=== PATIENT | female | born 1980 | race Caucasian/White ===

== ENCOUNTER 2020-02-19 19:03 | Emergency (ER) | payer MEDICAID ==
[~2020-02-19] VITALS: Ht 160 cm; Wt 75.0 kg
[~2020-02-19 19:03] MED LIST: VICOT PO
[2020-02-19] MEDS ORDERED: DULO20CA27 PO (19:26)
[2020-02-19 21:34] LABS: BASOPHILS % (AUTO) 0.5 % (0.0-2.0); EOSINOPHILS % (AUTO) 0.1 % (1.0-6.0); HEMOGLOBIN 15.2 g/dL (12.0-16.0); LYMPHOCYTES # (AUTO) 2.7 K/uL (1.0-4.8); LYMPHOCYTES % (AUTO) 35.5 % (22.0-44.0); MEAN CORPUSCULAR HEMOGLOBIN 31.1 pg (26.0-34.0); MEAN CORPUSCULAR HGB CONC 33.1 G/dL (31.0-37.0); MEAN CORPUSCULAR VOLUME 94 fL (80-100); MONOCYTES # (AUTO) 0.3 K/uL (0.1-1.0); NEUTROPHILS # (AUTO) 4.5 K/uL (1.8-7.7); NEUTROPHILS % (AUTO) 59.9 % (40.0-70.0); PLATELET COUNT (AUTO) 288 K/uL (150-450); RED BLOOD CELL COUNT(AUTO) 4.89 MIL/uL (4.00-5.20)
[2020-02-19 21:40] LABS: AMPHET/METH SCREEN,URINE POSITIVE (NEGATIVE); BARBITURATE SCREEN, URINE NEGATIVE (NEGATIVE); BENZODIAZEPINES SCREEN,URINE NEGATIVE (NEGATIVE); CANNABINOID SCREEN,URINE NEGATIVE (NEGATIVE); COCAINE SCREEN,URINE NEGATIVE (NEGATIVE); METHADONE SCREEN, URINE NEGATIVE (NEGATIVE); OPIATE SCREEN,URINE NEGATIVE (NEGATIVE)
[2020-02-19 21:44] LABS: PHENCYCLIDINE SCREEN,URINE NEGATIVE (NEGATIVE)
[2020-02-19] MEDS ORDERED: ACETAMINOPHEN/CODEINE 300-30 MG TABLET PO ONE (21:45)
[2020-02-19] MEDS ORDERED: KETOROLAC TROMETHAMINE 60 MG/2 ML VIAL IM ONE (21:45)
[2020-02-19 21:47] LABS: ANION GAP 11 mmol/L (8-16); CALCIUM, TOTAL 8.7 mg/dL (8.8-10.5); CARBON DIOXIDE 25 mmol/L (22-29); CHLORIDE 102 mmol/L (98-107); CREATININE 0.58 mg/dL (0.60-1.30); GLOMERULAR FILTR. RATE CALC > 60 mL/min (>60); GLUCOSE,RANDOM 126 mg/dL (70-110); POTASSIUM 3.8 mmol/L (3.5-5.1); SODIUM SERUM 138 mmol/L (136-145); UREA NITROGEN, BLOOD 6 mg/dL (7-18)
[2020-02-19 21:58] LABS: ALANINE AMINOTRANSFERASE 62 U/L (12-78); ALBUMIN 3.8 g/dL (3.4-5.0); ALKALINE PHOSPHATASE 94 U/L (46-116); ASPARTATE AMINOTRANSFERASE 84 U/L (15-37); BILIRUBIN,TOTAL 0.4 mg/dL (0.1-1.0); HCG,QUANTITATIVE 1 mIU/mL (0-6); TOTAL PROTEIN, SERUM 7.7 g/dL (6.4-8.2)
[2020-02-19 23:00] VITALS: BP 160/103
== END 2020-02-19 23:40 | disposition home or self-care (01) ==
LOC: EMS 19:03
DX: S22.41XA Multiple fractures of ribs, right side, initial encounter for closed fracture (principal); I10 Essential (primary) hypertension; F31.9 Bipolar disorder, unspecified; F17.210 Nicotine dependence, cigarettes, uncomplicated; Y08.89XA Assault by other specified means, initial encounter; Y93.89 Activity, other specified; Y92.89 Other specified places as the place of occurrence of the external cause; Y99.8 Other external cause status
CPT/HCPCS: 36415; 71101; 80053; 80307; 84702; 85025; 96372; 99284; G0480; J1885

== ENCOUNTER 2020-08-05 12:09 | Inpatient (IN) | payer MEDICAID ==
[~2020-08-05] VITALS: Ht 160 cm; Wt 61.2 kg
[~2020-08-05 12:09] MED LIST changes: +DULO20CA27 PO; -VICOT PO
[2020-08-05] MEDS ORDERED: LEVE500T53 PO (12:26)
[2020-08-05] MEDS ORDERED: CLON0.1T2 PO (12:26)
[2020-08-05] MEDS ORDERED: ALBU8HFA IH (12:26)
[2020-08-05 12:50] LABS: BASOPHILS % (AUTO) 0.7 % (0.0-2.0); EOSINOPHILS % (AUTO) 0.3 % (1.0-6.0); HEMATOCRIT 37.1 % (36-46); HEMOGLOBIN 12.4 g/dL (12.0-16.0); LYMPHOCYTES # (AUTO) 2.2 K/uL (1.0-4.8); LYMPHOCYTES % (AUTO) 25.2 % (22.0-44.0); MEAN CORPUSCULAR HEMOGLOBIN 31.9 pg (26.0-34.0); MEAN CORPUSCULAR HGB CONC 33.5 G/dL (31.0-37.0); MEAN CORPUSCULAR VOLUME 95 fL (80-100); MONOCYTES # (AUTO) 0.5 K/uL (0.1-1.0); MONOCYTES % (AUTO) 5.9 % (2.0-9.0); NEUTROPHILS # (AUTO) 5.8 K/uL (1.8-7.7); NEUTROPHILS % (AUTO) 67.9 % (40.0-70.0); PLATELET COUNT (AUTO) 234 K/uL (150-450); RED BLOOD CELL COUNT(AUTO) 3.89 MIL/uL (4.00-5.20); RED CELL DISTRIBUTION WIDTH 14.8 % (11.5-14.5)
[2020-08-05 12:53] LABS: COVID AG,FIA SOURCE NASOPHARYNGEAL
[2020-08-05 13:04] LABS: ANION GAP 14 mmol/L (8-16); CALCIUM, TOTAL 8.3 mg/dL (8.8-10.5); CARBON DIOXIDE 24 mmol/L (22-29); CHLORIDE 102 mmol/L (98-107); CREATININE 0.85 mg/dL (0.60-1.30); GLOMERULAR FILTR. RATE CALC > 60 mL/min (>60); GLUCOSE,RANDOM 108 mg/dL (70-110); POTASSIUM 3.4 mmol/L (3.5-5.1); SODIUM SERUM 140 mmol/L (136-145); UREA NITROGEN, BLOOD 9 mg/dL (7-18)
[2020-08-05 13:08] LABS: ALANINE AMINOTRANSFERASE 27 U/L (12-78); ALBUMIN 3.5 g/dL (3.4-5.0); ALKALINE PHOSPHATASE 57 U/L (46-116); ASPARTATE AMINOTRANSFERASE 35 U/L (15-37); BILIRUBIN,TOTAL 0.2 mg/dL (0.1-1.0); TOTAL PROTEIN, SERUM 7.5 g/dL (6.4-8.2)
[2020-08-05] MEDS ORDERED: ZOLPIDEM TARTRATE 10 MG TABLET PO PRN (13:45)
[2020-08-05 13:55] LABS: AMPHET/METH SCREEN,URINE POSITIVE (NEGATIVE); BARBITURATE SCREEN, URINE NEGATIVE (NEGATIVE); BENZODIAZEPINES SCREEN,URINE NEGATIVE (NEGATIVE); CANNABINOID SCREEN,URINE NEGATIVE (NEGATIVE); COCAINE SCREEN,URINE NEGATIVE (NEGATIVE); METHADONE SCREEN, URINE NEGATIVE (NEGATIVE); OPIATE SCREEN,URINE POSITIVE (NEGATIVE); PHENCYCLIDINE SCREEN,URINE NEGATIVE (NEGATIVE)
[2020-08-05] MEDS: LORazepam 2 MG TABLET PO PRN ×2 (13:57→20:35)
[2020-08-05 14:42] VITALS: BP 167/93
[2020-08-05 17:07] VITALS: BP 135/79
[2020-08-05] MEDS: QUEtiapine FUMARATE 100 MG TABLET PO PRN (23:35)
[2020-08-06 00:32] VITALS: BP 143/96
[2020-08-06] MEDS ORDERED: INFLUENZA VIRUS VACCINE QVS 2020-21 (6MO+)/PF 60 MCG/0.5 ML SYRINGE IM ONE (06:45)
[2020-08-06 08:51] LABS: CHOL/HDL RATIO 1.7 (3.9-5.7); FREE T4 (FREE THYROXINE) 0.79 ng/dL (0.76-1.46); THYROID STIMULATING HORMONE 2.85 uIU/mL (0.36-3.74)
[2020-08-06] MEDS: LORazepam 2 MG TABLET PO PRN ×3 (08:52→19:38)
[2020-08-06] MEDS: NICOTINE 21 MG/24 HOUR PATCH TD SCH (08:53)
[2020-08-06] MEDS ORDERED: ALBUTEROL SULFATE HFA 90 MCG/PUFF 8 GM INHALER IH PRN (09:30)
[2020-08-06] MEDS ORDERED: OMEPRAZOLE 20 MG CAPSULE PO PRN (09:30)
[2020-08-06] MEDS ORDERED: IBUPROFEN 600 MG TABLET PO PRN (09:30)
[2020-08-06] MEDS ORDERED: CloNIDine HCL 0.1 MG TABLET PO PRN (09:30)
[2020-08-06] MEDS ORDERED: MAG HYDROX/AL HYDROX/SIMETH ES 30 ML SUSPENSION UDCUP PO PRN (09:30)
[2020-08-06] MEDS ORDERED: BENZOCAINE/MENTHOL LOZENGE PO PRN (09:30)
[2020-08-06] MEDS ORDERED: BACITRACIN 28 GM OINTMENT TP PRN (09:30)
[2020-08-06] MEDS ORDERED: ACETAMINOPHEN 325 MG TABLET PO PRN (09:30)
[2020-08-06] MEDS ORDERED: POTASSIUM CHLORIDE 20 MEQ ER TABLET PO ONE (09:30)
[2020-08-06] MEDS ORDERED: PETROLATUM,WHITE 28 GM JELLY TP PRN (09:30)
[2020-08-06] MEDS ORDERED: DOCUSATE SODIUM 100 MG CAPSULE PO PRN (09:30)
[2020-08-06] MEDS ORDERED: MAGNESIUM HYDROXIDE SUSPENSION 30 ML UDCUP PO PRN (09:30)
[2020-08-06 09:31] VITALS: BP 132/80
[2020-08-06] MEDS: LevETIRAcetam 500 MG TABLET PO SCH (16:53)
[2020-08-06 17:11] VITALS: BP 141/101
[2020-08-06 20:05] VITALS: BP 142/90
[2020-08-06] MEDS ORDERED: ChlordiazePOXIDE HCL 25 MG CAPSULE PO PRN (20:45)
[2020-08-06] MEDS: QUEtiapine FUMARATE 100 MG TABLET PO PRN (21:29)
[2020-08-07] VITALS (7 sets, daily range): BP systolic 112–156; BP diastolic 67–97
[2020-08-07] MEDS: LORazepam 2 MG TABLET PO PRN ×2 (03:08→14:53)
[2020-08-07] MEDS ORDERED: ChlordiazePOXIDE HCL 25 MG CAPSULE PO PRN (07:00)
[2020-08-07] MEDS: ChlordiazePOXIDE HCL 25 MG CAPSULE PO SCH ×4 (10:16→20:24)
[2020-08-07] MEDS: MULTIVITAMINS WITH MINERALS, THERAPEUTIC TABLET PO SCH (10:16)
[2020-08-07] MEDS: DULoxetine HCL 60 MG CAPSULE PO SCH (10:16)
[2020-08-07] MEDS: LevETIRAcetam 500 MG TABLET PO SCH ×2 (10:17→16:31)
[2020-08-07] MEDS: NICOTINE 21 MG/24 HOUR PATCH TD SCH (10:17)
[2020-08-08] MEDS: QUEtiapine FUMARATE 100 MG TABLET PO PRN (01:59)
[2020-08-08 03:52] VITALS: BP 149/103
[2020-08-08 04:09] VITALS: BP 149/103
[2020-08-08] MEDS: ChlordiazePOXIDE HCL 25 MG CAPSULE PO SCH ×2 (08:55→12:32)
[2020-08-08] MEDS: MULTIVITAMINS WITH MINERALS, THERAPEUTIC TABLET PO SCH (08:55)
[2020-08-08] MEDS: LevETIRAcetam 500 MG TABLET PO SCH (08:55)
[2020-08-08] MEDS: DULoxetine HCL 60 MG CAPSULE PO SCH (08:55)
[2020-08-08] MEDS: NICOTINE 21 MG/24 HOUR PATCH TD SCH (08:58)
[2020-08-08 09:21] VITALS: BP 118/78
[2020-08-08 09:25] VITALS: BP 118/78
[2020-08-08] MEDS: LORazepam 2 MG TABLET PO PRN (12:32)
[2020-08-08] MEDS ORDERED: MULT-1239 PO (14:13)
[2020-08-09] MEDS ORDERED: ChlordiazePOXIDE HCL 10 MG CAPSULE PO PRN (07:00)
[2020-08-09] MEDS ORDERED: ChlordiazePOXIDE HCL 10 MG CAPSULE PO SCH (09:00)
[2020-08-10] MEDS ORDERED: ChlordiazePOXIDE HCL 10 MG CAPSULE PO PRN (07:00)
== END 2020-08-08 15:00 | disposition home or self-care (01) | DRG 750 ==
LOC: EMS 12:14 → 3EI 14:10
PROVIDERS: ADMIT Psychiatry & Neurology Psychiatry; ATTEND Psychiatry & Neurology Psychiatry
DX: F20.9 Schizophrenia, unspecified (principal); F15.90 Other stimulant use, unspecified, uncomplicated; F17.200 Nicotine dependence, unspecified, uncomplicated; K21.9 Gastro-esophageal reflux disease without esophagitis; K59.00 Constipation, unspecified; F41.9 Anxiety disorder, unspecified; G47.00 Insomnia, unspecified; E87.6 Hypokalemia; Z20.822 Contact with and (suspected) exposure to COVID-19; Z88.8 Allergy status to other drugs, medicaments and biological substances
CPT/HCPCS: 84132; 84439; 84443; 87426; 99285; G0480

== ENCOUNTER 2020-09-20 15:50 | Inpatient (IN) | payer MEDICAID, OTHER ==
[~2020-09-20] VITALS: Ht 160 cm; Wt 60.3 kg
[~2020-09-20 15:50] MED LIST changes: +LEVE500T53 PO; +MULT-1239 PO
[2020-09-20] MEDS: LORazepam 2 MG TABLET PO PRN (19:24)
[2020-09-20] MEDS ORDERED: HALOPERIDOL LACTATE 5 MG/ML VIAL IM ONE (19:30)
[2020-09-20] MEDS ORDERED: LORazepam 2 MG/ML VIAL IM ONE (19:30)
[2020-09-20 21:35] LABS: COVID AG,FIA SOURCE NASOPHARYNGEAL
[2020-09-20 22:13] LABS: BASOPHILS % (AUTO) 0.7 % (0.0-2.0); EOSINOPHILS % (AUTO) 0.5 % (1.0-6.0); HEMOGLOBIN 12.6 g/dL (12.0-16.0); LYMPHOCYTES # (AUTO) 1.8 K/uL (1.0-4.8); LYMPHOCYTES % (AUTO) 20.9 % (22.0-44.0); MEAN CORPUSCULAR HEMOGLOBIN 29.7 pg (26.0-34.0); MEAN CORPUSCULAR HGB CONC 32.4 G/dL (31.0-37.0); MEAN CORPUSCULAR VOLUME 92 fL (80-100); MONOCYTES # (AUTO) 0.8 K/uL (0.1-1.0); MONOCYTES % (AUTO) 9.6 % (2.0-9.0); NEUTROPHILS # (AUTO) 5.7 K/uL (1.8-7.7); NEUTROPHILS % (AUTO) 68.3 % (40.0-70.0); RED BLOOD CELL COUNT(AUTO) 4.24 MIL/uL (4.00-5.20); RED CELL DISTRIBUTION WIDTH 15.7 % (11.5-14.5)
[2020-09-20 22:20] LABS: ANION GAP 12 mmol/L (8-16); CALCIUM, TOTAL 8.3 mg/dL (8.8-10.5); CARBON DIOXIDE 24 mmol/L (22-29); CHLORIDE 99 mmol/L (98-107); CREATININE 0.54 mg/dL (0.60-1.30); GLOMERULAR FILTR. RATE CALC > 60 mL/min (>60); GLUCOSE,RANDOM 111 mg/dL (70-110); POTASSIUM 4.8 mmol/L (3.5-5.1); SODIUM SERUM 135 mmol/L (136-145); UREA NITROGEN, BLOOD 7 mg/dL (7-18)
[2020-09-20 22:28] LABS: PLATELET COUNT (AUTO) 265 K/uL (150-450); PLATELET MORPHOLOGY COMMENT GIANT PLTS PRESENT
[2020-09-21 02:50] LABS: CHOL/HDL RATIO 2.1 (3.9-5.7); CHOLESTEROL 174 mg/dL (131-200); HDL CHOLESTEROL 84 mg/dL (40-60); LDL CHOL (CALC.) 70 mg/dL (0-130); TRIGLYCERIDES 102 mg/dL (15-150)
[2020-09-21 07:50] LABS: AMPHET/METH SCREEN,URINE POSITIVE (NEGATIVE); BARBITURATE SCREEN, URINE NEGATIVE (NEGATIVE); BENZODIAZEPINES SCREEN,URINE POSITIVE (NEGATIVE); CANNABINOID SCREEN,URINE NEGATIVE (NEGATIVE); COCAINE SCREEN,URINE NEGATIVE (NEGATIVE); METHADONE SCREEN, URINE NEGATIVE (NEGATIVE); OPIATE SCREEN,URINE POSITIVE (NEGATIVE); PHENCYCLIDINE SCREEN,URINE POSITIVE (NEGATIVE)
[2020-09-21 16:15] VITALS: BP 126/60
[2020-09-21] MEDS: HALOPERIDOL 5 MG TABLET PO PRN (17:13)
[2020-09-21] MEDS: LORazepam 2 MG TABLET PO PRN (17:13)
[2020-09-21] MEDS: LevETIRAcetam 500 MG TABLET PO SCH (18:00)
[2020-09-21] MEDS ORDERED: PNEUMOCOCCAL VACCINE POLYVALENT 0.5 ML VIAL [PPSV23] IM. ONE (18:00)
[2020-09-22 00:14] VITALS: BP 122/60
[2020-09-22] MEDS ORDERED: PETROLATUM,WHITE 28 GM JELLY TP PRN (07:45)
[2020-09-22] MEDS ORDERED: CloNIDine HCL 0.1 MG TABLET PO PRN (07:45)
[2020-09-22] MEDS ORDERED: GuaiFENesin/D-METHORPHAN [SUGAR-FREE] 200-20MG/10 ML SYRUP UDCUP PO PRN (07:45)
[2020-09-22] MEDS ORDERED: MAGNESIUM HYDROXIDE SUSPENSION 30 ML UDCUP PO PRN (07:45)
[2020-09-22] MEDS ORDERED: ALBUTEROL SULFATE HFA 90 MCG/PUFF 8 GM INHALER IH PRN (07:45)
[2020-09-22] MEDS ORDERED: IBUPROFEN 400 MG TABLET PO PRN (07:45)
[2020-09-22] MEDS ORDERED: DOCUSATE SODIUM 100 MG CAPSULE PO PRN (07:45)
[2020-09-22] MEDS ORDERED: NICOTINE 14 MG/24 HOUR PATCH TD PRN (07:45)
[2020-09-22] MEDS ORDERED: MAG HYDROX/AL HYDROX/SIMETH ES 30 ML SUSPENSION UDCUP PO PRN (07:45)
[2020-09-22] MEDS ORDERED: ONDANSETRON HCL 4 MG TABLET PO PRN (07:45)
[2020-09-22] MEDS ORDERED: ACETAMINOPHEN 325 MG TABLET PO PRN (07:45)
[2020-09-22 08:13] VITALS: BP 130/77
[2020-09-22] MEDS: LevETIRAcetam 500 MG TABLET PO SCH ×2 (10:16→16:16)
[2020-09-22] MEDS: LORazepam 2 MG TABLET PO PRN (12:28)
[2020-09-22 16:09] VITALS: BP 122/60
[2020-09-22] MEDS: QUEtiapine FUMARATE 25 MG TABLET PO SCH (16:16)
[2020-09-22] MEDS: DULoxetine HCL 60 MG CAPSULE PO SCH (16:16)
[2020-09-22] MEDS: TraZODone HCL 100 MG TABLET PO SCH (20:41)
[2020-09-23 05:28] VITALS: BP 107/75
[2020-09-23 08:09] VITALS: BP 110/66
[2020-09-23] MEDS: DULoxetine HCL 60 MG CAPSULE PO SCH (08:46)
[2020-09-23] MEDS: QUEtiapine FUMARATE 25 MG TABLET PO SCH ×2 (08:46→16:03)
[2020-09-23] MEDS: LevETIRAcetam 500 MG TABLET PO SCH ×2 (08:46→16:03)
[2020-09-23] MEDS: LORazepam 2 MG TABLET PO PRN ×2 (08:52→16:07)
[2020-09-23 16:13] VITALS: BP 112/63
[2020-09-23] MEDS: TraZODone HCL 100 MG TABLET PO SCH (20:30)
[2020-09-24 06:23] VITALS: BP 129/72
[2020-09-24 08:08] VITALS: BP 121/76
[2020-09-24] MEDS: ERYTHROMYCIN 0.5% 3.5 GM TUBE OPHTHALMIC OINTMENT OS SCH ×2 (08:36→21:21)
[2020-09-24] MEDS: LevETIRAcetam 500 MG TABLET PO SCH ×2 (08:36→16:25)
[2020-09-24] MEDS: DULoxetine HCL 60 MG CAPSULE PO SCH (08:36)
[2020-09-24] MEDS: QUEtiapine FUMARATE 25 MG TABLET PO SCH ×2 (08:36→16:26)
[2020-09-24] MEDS: LORazepam 2 MG TABLET PO PRN (12:59)
[2020-09-24 16:09] VITALS: BP 115/65
[2020-09-24] MEDS: TraZODone HCL 100 MG TABLET PO SCH (21:18)
[2020-09-24] MEDS: ZOLPIDEM TARTRATE 10 MG TABLET PO PRN (21:19)
[2020-09-25 01:39] VITALS: BP 117/68
[2020-09-25] MEDS: DULoxetine HCL 60 MG CAPSULE PO SCH (08:30)
[2020-09-25] MEDS: QUEtiapine FUMARATE 25 MG TABLET PO SCH ×2 (08:30→16:31)
[2020-09-25] MEDS: LevETIRAcetam 500 MG TABLET PO SCH ×2 (08:31→16:31)
[2020-09-25] MEDS: ERYTHROMYCIN 0.5% 3.5 GM TUBE OPHTHALMIC OINTMENT OS SCH ×2 (08:31→20:30)
[2020-09-25] MEDS: LORazepam 2 MG TABLET PO PRN ×2 (08:31→16:42)
[2020-09-25 10:45] VITALS: BP 121/75
[2020-09-25 16:30] VITALS: BP 104/67
[2020-09-25] MEDS: HALOPERIDOL 5 MG TABLET PO PRN (17:34)
[2020-09-25] MEDS: TraZODone HCL 100 MG TABLET PO SCH (20:28)
[2020-09-26 05:40] VITALS: BP 113/77
[2020-09-26 08:11] VITALS: BP 118/75
[2020-09-26] MEDS: LevETIRAcetam 500 MG TABLET PO SCH ×2 (09:33→16:05)
[2020-09-26] MEDS: DULoxetine HCL 60 MG CAPSULE PO SCH (09:33)
[2020-09-26] MEDS: LORazepam 2 MG TABLET PO PRN ×3 (09:34→22:13)
[2020-09-26] MEDS: QUEtiapine FUMARATE 25 MG TABLET PO SCH ×2 (09:34→16:05)
[2020-09-26] MEDS: ERYTHROMYCIN 0.5% 3.5 GM TUBE OPHTHALMIC OINTMENT OS SCH ×2 (09:34→20:24)
[2020-09-26 16:48] VITALS: BP 106/67
[2020-09-26] MEDS: ZOLPIDEM TARTRATE 10 MG TABLET PO PRN (20:23)
[2020-09-26] MEDS: TraZODone HCL 100 MG TABLET PO SCH (20:23)
[2020-09-26] MEDS: HALOPERIDOL 5 MG TABLET PO PRN (22:13)
[2020-09-27 06:03] VITALS: BP 114/77
[2020-09-27] MEDS: QUEtiapine FUMARATE 25 MG TABLET PO SCH ×2 (08:27→16:05)
[2020-09-27] MEDS: LORazepam 2 MG TABLET PO PRN ×3 (08:27→20:17)
[2020-09-27] MEDS: ERYTHROMYCIN 0.5% 3.5 GM TUBE OPHTHALMIC OINTMENT OS SCH ×2 (08:27→20:11)
[2020-09-27] MEDS: LevETIRAcetam 500 MG TABLET PO SCH ×2 (08:28→16:05)
[2020-09-27] MEDS: DULoxetine HCL 60 MG CAPSULE PO SCH (08:28)
[2020-09-27 08:50] VITALS: BP_SYST 105; BP_SYST 122; BP_DIAS 75; BP_DIAS 79
[2020-09-27] MEDS: HALOPERIDOL 5 MG TABLET PO PRN (15:34)
[2020-09-27 16:15] VITALS: BP 123/81
[2020-09-27] MEDS: TraZODone HCL 100 MG TABLET PO SCH (20:11)
[2020-09-27] MEDS: ZOLPIDEM TARTRATE 10 MG TABLET PO PRN (22:52)
[2020-09-28 02:58] VITALS: BP 120/78
[2020-09-28 08:20] VITALS: BP 110/60
[2020-09-28] MEDS: QUEtiapine FUMARATE 25 MG TABLET PO SCH ×2 (08:24→16:52)
[2020-09-28] MEDS: ERYTHROMYCIN 0.5% 3.5 GM TUBE OPHTHALMIC OINTMENT OS SCH ×2 (08:24→20:31)
[2020-09-28] MEDS: LevETIRAcetam 500 MG TABLET PO SCH ×2 (08:24→16:52)
[2020-09-28] MEDS: DULoxetine HCL 60 MG CAPSULE PO SCH (08:24)
[2020-09-28] MEDS: LORazepam 2 MG TABLET PO PRN ×3 (08:25→20:48)
[2020-09-28 16:12] VITALS: BP 115/78
[2020-09-28] MEDS: TraZODone HCL 100 MG TABLET PO SCH (20:31)
[2020-09-28] MEDS: HALOPERIDOL 5 MG TABLET PO PRN (20:48)
[2020-09-29 02:01] VITALS: BP 112/67
[2020-09-29 08:27] VITALS: BP 116/59
[2020-09-29] MEDS: LevETIRAcetam 500 MG TABLET PO SCH (08:32)
[2020-09-29] MEDS: DULoxetine HCL 60 MG CAPSULE PO SCH (08:32)
[2020-09-29] MEDS: QUEtiapine FUMARATE 25 MG TABLET PO SCH (08:32)
[2020-09-29] MEDS: LORazepam 2 MG TABLET PO PRN ×2 (08:32→13:27)
[2020-09-29] MEDS: ERYTHROMYCIN 0.5% 3.5 GM TUBE OPHTHALMIC OINTMENT OS SCH (08:33)
[2020-09-29] MEDS ORDERED: QUET25TA PO (14:44)
[2020-09-29] MEDS ORDERED: TRAZ-257 PO (14:44)
== END 2020-09-29 16:24 | disposition home or self-care (01) | DRG 750 ==
LOC: EMS 15:51 → B3A 09-21 10:43 → EMS 09-21 11:37 → B3A 09-21 11:37
PROVIDERS: ADMIT Psychiatry & Neurology Child & Adolescent Psychiatry; ATTEND Psychiatry & Neurology Child & Adolescent Psychiatry
DX: F20.9 Schizophrenia, unspecified (principal); G40.909 Epilepsy, unspecified, not intractable, without status epilepticus; F12.90 Cannabis use, unspecified, uncomplicated; I10 Essential (primary) hypertension; K21.9 Gastro-esophageal reflux disease without esophagitis; Z20.822 Contact with and (suspected) exposure to COVID-19; J45.909 Unspecified asthma, uncomplicated
CPT/HCPCS: 80048; 80061; 85025; 87426; 99291; G0480; J1630; J2060

== ENCOUNTER 2020-10-29 01:09 | Inpatient (IN) | payer MEDICAID, OTHER ==
[~2020-10-29] VITALS: Ht 160 cm; Wt 60.9 kg
[2020-10-29] VITALS (9 sets, daily range): BP systolic 108–142; BP diastolic 67–78
[~2020-10-29 01:09] MED LIST changes: -MULT-1239 PO; +QUET25TA PO; +TRAZ-257 PO
[2020-10-29 02:08] LABS: COVID AG,FIA SOURCE NASOPHARYNGEAL
[2020-10-29 02:13] LABS: BASOPHILS % (AUTO) 0.6 % (0.0-2.0); EOSINOPHILS % (AUTO) 0.3 % (1.0-6.0); HEMATOCRIT 41.7 % (36-46); HEMOGLOBIN 13.4 g/dL (12.0-16.0); LYMPHOCYTES # (AUTO) 2.8 K/uL (1.0-4.8); LYMPHOCYTES % (AUTO) 46.3 % (22.0-44.0); MEAN CORPUSCULAR HEMOGLOBIN 28.3 pg (26.0-34.0); MEAN CORPUSCULAR HGB CONC 32.1 G/dL (31.0-37.0); MEAN CORPUSCULAR VOLUME 88 fL (80-100); MONOCYTES # (AUTO) 0.4 K/uL (0.1-1.0); MONOCYTES % (AUTO) 6.6 % (2.0-9.0); NEUTROPHILS # (AUTO) 2.7 K/uL (1.8-7.7); NEUTROPHILS % (AUTO) 46.2 % (40.0-70.0); PLATELET COUNT (AUTO) 254 K/uL (150-450); RED BLOOD CELL COUNT(AUTO) 4.74 MIL/uL (4.00-5.20); RED CELL DISTRIBUTION WIDTH 16.7 % (11.5-14.5)
[2020-10-29] MEDS ORDERED: ZOLPIDEM TARTRATE 10 MG TABLET PO PRN (02:15)
[2020-10-29 02:17] LABS: AMPHET/METH SCREEN,URINE POSITIVE (NEGATIVE); BARBITURATE SCREEN, URINE NEGATIVE (NEGATIVE); BENZODIAZEPINES SCREEN,URINE POSITIVE (NEGATIVE); CANNABINOID SCREEN,URINE NEGATIVE (NEGATIVE); COCAINE SCREEN,URINE NEGATIVE (NEGATIVE); METHADONE SCREEN, URINE NEGATIVE (NEGATIVE); OPIATE SCREEN,URINE NEGATIVE (NEGATIVE)
[2020-10-29 02:18] LABS: PHENCYCLIDINE SCREEN,URINE NEGATIVE (NEGATIVE)
[2020-10-29 02:23] LABS: ANION GAP 17 mmol/L (8-16); CARBON DIOXIDE 22 mmol/L (22-29); CHLORIDE 105 mmol/L (98-107); GLOMERULAR FILTR. RATE CALC > 60 mL/min (>60); GLUCOSE,RANDOM 96 mg/dL (70-110); POTASSIUM 3.9 mmol/L (3.5-5.1); SODIUM SERUM 144 mmol/L (136-145); UREA NITROGEN, BLOOD 10 mg/dL (7-18)
[2020-10-29] MEDS ORDERED: NAPROXEN 250 MG TABLET PO ONE (02:30)
[2020-10-29 02:37] LABS: ALANINE AMINOTRANSFERASE 33 U/L (12-78); ALBUMIN 3.3 g/dL (3.4-5.0); ALKALINE PHOSPHATASE 76 U/L (46-116); ASPARTATE AMINOTRANSFERASE 44 U/L (15-37); BILIRUBIN,TOTAL 0.2 mg/dL (0.1-1.0); TOTAL PROTEIN, SERUM 7.2 g/dL (6.4-8.2)
[2020-10-29 02:42] LABS: APPEARANCE,URINE CLOUDY (CLEAR); BILIRUBIN,URINE NEGATIVE (NEGATIVE); GLUCOSE, URINE (UA) NEGATIVE (NEGATIVE); KETONES,URINE NEGATIVE (NEGATIVE); LEUKOCYTE ESTERASE ,URINE TRACE (NEGATIVE); NITRATE,URINE POSITIVE (NEGATIVE); OCCULT BLOOD,URINE SMALL (NEGATIVE); PH,URINE 6.5 (5.0-8.0); PROTEIN,URINE NEGATIVE (NEGATIVE); UROBILINOGEN,URINE 0.2 mg/dL (<=1.0)
[2020-10-29 02:52] LABS: BACTERIA,URINE Many /HPF (None Seen); RBC,URINE 0-2 /HPF (0-2); SQUAMOUS EPITHELIAL CELL,UR Few /LPF (None Seen); WBC,URINE 0-2 /HPF (0-5)
[2020-10-29] MEDS: LORazepam 2 MG TABLET PO PRN ×2 (03:11→12:31)
[2020-10-29] MEDS ORDERED: ACETAMINOPHEN 325 MG TABLET PO ONE (04:00)
[2020-10-29] MEDS ORDERED: PETROLATUM,WHITE 28 GM JELLY TP PRN (09:00)
[2020-10-29] MEDS ORDERED: DOCUSATE SODIUM 100 MG CAPSULE PO PRN (09:00)
[2020-10-29] MEDS ORDERED: ACETAMINOPHEN 325 MG TABLET PO PRN (09:00)
[2020-10-29] MEDS ORDERED: BACITRACIN 28 GM OINTMENT TP PRN (09:00)
[2020-10-29] MEDS ORDERED: MAG HYDROX/AL HYDROX/SIMETH ES 30 ML SUSPENSION UDCUP PO PRN (09:00)
[2020-10-29] MEDS ORDERED: MAGNESIUM HYDROXIDE SUSPENSION 30 ML UDCUP PO PRN (09:00)
[2020-10-29] MEDS ORDERED: OMEPRAZOLE 20 MG CAPSULE PO PRN (09:00)
[2020-10-29] MEDS ORDERED: BENZOCAINE/MENTHOL LOZENGE PO PRN (09:00)
[2020-10-29] MEDS ORDERED: CloNIDine HCL 0.1 MG TABLET PO PRN (09:00)
[2020-10-29] MEDS ORDERED: IBUPROFEN 600 MG TABLET PO PRN (09:00)
[2020-10-29] MEDS ORDERED: ALBUTEROL SULFATE HFA 90 MCG/PUFF 8 GM INHALER IH PRN (09:00)
[2020-10-29] MEDS: CEPHALEXIN MONOHYDRATE 500 MG CAPSULE PO SCH ×2 (09:34→16:08)
[2020-10-29] MEDS: MULTIVITAMINS WITH MINERALS, THERAPEUTIC TABLET PO SCH (09:35)
[2020-10-29] MEDS: LevETIRAcetam 500 MG TABLET PO SCH ×2 (09:35→16:08)
[2020-10-29] MEDS ORDERED: PNEUMOCOCCAL VACCINE POLYVALENT 0.5 ML VIAL [PPSV23] IM. ONE (12:30)
[2020-10-29] MEDS: HALOPERIDOL 5 MG TABLET PO PRN (13:51)
[2020-10-29] MEDS: QUEtiapine FUMARATE 25 MG TABLET PO SCH (16:08)
[2020-10-29] MEDS: ASCORBIC ACID 500 MG TABLET PO SCH (16:08)
[2020-10-29] MEDS: TraZODone HCL 100 MG TABLET PO SCH (20:32)
[2020-10-30 04:20] VITALS: BP 132/80
[2020-10-30 04:59] VITALS: BP 149/93
[2020-10-30 08:05] LABS: BASOPHILS % (AUTO) 0.2 % (0.0-2.0); EOSINOPHILS % (AUTO) 1.3 % (1.0-6.0); HEMATOCRIT 41.2 % (36-46); HEMOGLOBIN 13.3 g/dL (12.0-16.0); LYMPHOCYTES # (AUTO) 2.8 K/uL (1.0-4.8); LYMPHOCYTES % (AUTO) 38.3 % (22.0-44.0); MEAN CORPUSCULAR HEMOGLOBIN 28.6 pg (26.0-34.0); MEAN CORPUSCULAR HGB CONC 32.2 G/dL (31.0-37.0); MEAN CORPUSCULAR VOLUME 89 fL (80-100); MONOCYTES # (AUTO) 0.5 K/uL (0.1-1.0); MONOCYTES % (AUTO) 6.4 % (2.0-9.0); NEUTROPHILS # (AUTO) 3.9 K/uL (1.8-7.7); NEUTROPHILS % (AUTO) 53.8 % (40.0-70.0); PLATELET COUNT (AUTO) 216 K/uL (150-450); RED BLOOD CELL COUNT(AUTO) 4.65 MIL/uL (4.00-5.20); RED CELL DISTRIBUTION WIDTH 16.4 % (11.5-14.5)
[2020-10-30 08:11] LABS: HEMOGLOBIN A1C 5.7 % (3.8-5.6)
[2020-10-30 08:28] VITALS: BP 125/87
[2020-10-30] MEDS: CYANOCOBALAMIN 500 MCG TABLET PO SCH (08:46)
[2020-10-30] MEDS: LevETIRAcetam 500 MG TABLET PO SCH ×2 (08:47→17:06)
[2020-10-30] MEDS: FOLIC ACID 1 MG TABLET PO SCH (08:47)
[2020-10-30] MEDS: ASCORBIC ACID 500 MG TABLET PO SCH ×2 (08:47→17:08)
[2020-10-30] MEDS: MULTIVITAMINS WITH MINERALS, THERAPEUTIC TABLET PO SCH (08:47)
[2020-10-30] MEDS: DULoxetine HCL 60 MG CAPSULE PO SCH (08:48)
[2020-10-30] MEDS: CEPHALEXIN MONOHYDRATE 500 MG CAPSULE PO SCH ×2 (08:48→17:06)
[2020-10-30] MEDS: QUEtiapine FUMARATE 25 MG TABLET PO SCH ×2 (08:48→17:06)
[2020-10-30 08:56] LABS: ALANINE AMINOTRANSFERASE 30 U/L (12-78); ALBUMIN 3.4 g/dL (3.4-5.0); ALKALINE PHOSPHATASE 75 U/L (46-116); ANION GAP 11 mmol/L (8-16); ASPARTATE AMINOTRANSFERASE 32 U/L (15-37); BILIRUBIN,TOTAL 1.1 mg/dL (0.1-1.0); CALCIUM, TOTAL 8.4 mg/dL (8.8-10.5); CARBON DIOXIDE 23 mmol/L (22-29); CHLORIDE 102 mmol/L (98-107); CHOL/HDL RATIO 1.6 (3.9-5.7); CHOLESTEROL 176 mg/dL (131-200); CREATININE 0.66 mg/dL (0.60-1.30); GLOMERULAR FILTR. RATE CALC > 60 mL/min (>60); GLUCOSE,RANDOM 102 mg/dL (70-110); HDL CHOLESTEROL 108 mg/dL (40-60); LDL CHOL (CALC.) 51 mg/dL (0-130); POTASSIUM 3.2 mmol/L (3.5-5.1); SODIUM SERUM 136 mmol/L (136-145); THYROID STIMULATING HORMONE 3.25 uIU/mL (0.36-3.74); TOTAL PROTEIN, SERUM 7.3 g/dL (6.4-8.2); TRIGLYCERIDES 84 mg/dL (15-150); UREA NITROGEN, BLOOD 14 mg/dL (7-18)
[2020-10-30 13:32] VITALS: BP 140/74
[2020-10-30] MEDS ORDERED: POTASSIUM CHLORIDE 20 MEQ ER TABLET PO ONE (14:45)
[2020-10-30 16:15] VITALS: BP 138/89
[2020-10-30 17:31] VITALS: BP 149/90
[2020-10-30] MEDS: TraZODone HCL 100 MG TABLET PO SCH (20:15)
[2020-10-31 00:55] VITALS: BP 148/78
[2020-10-31 00:56] VITALS: BP 148/78
[2020-10-31] MEDS: HALOPERIDOL 5 MG TABLET PO PRN ×3 (04:55→16:30)
[2020-10-31] MEDS: DULoxetine HCL 60 MG CAPSULE PO SCH (08:05)
[2020-10-31] MEDS: ASCORBIC ACID 500 MG TABLET PO SCH ×2 (08:05→16:32)
[2020-10-31] MEDS: CYANOCOBALAMIN 500 MCG TABLET PO SCH (08:05)
[2020-10-31] MEDS: QUEtiapine FUMARATE 25 MG TABLET PO SCH ×2 (08:05→16:30)
[2020-10-31] MEDS: FOLIC ACID 1 MG TABLET PO SCH (08:05)
[2020-10-31] MEDS: MULTIVITAMINS WITH MINERALS, THERAPEUTIC TABLET PO SCH (08:05)
[2020-10-31] MEDS: LevETIRAcetam 500 MG TABLET PO SCH ×2 (08:05→16:29)
[2020-10-31] MEDS: CEPHALEXIN MONOHYDRATE 500 MG CAPSULE PO SCH ×2 (08:05→16:30)
[2020-10-31 08:40] VITALS: BP 136/107
[2020-10-31] MEDS ORDERED: CloNIDine HCL 0.1 MG TABLET PO ONE (09:15)
[2020-10-31 09:50] VITALS: BP 141/78
[2020-10-31 16:20] VITALS: BP 143/90
[2020-10-31 20:34] VITALS: BP 143/90
[2020-10-31] MEDS: TraZODone HCL 100 MG TABLET PO SCH (20:43)
[2020-11-01 06:14] VITALS: BP 128/78
[2020-11-01] MEDS: QUEtiapine FUMARATE 25 MG TABLET PO SCH (08:08)
[2020-11-01] MEDS: LevETIRAcetam 500 MG TABLET PO SCH (08:08)
[2020-11-01] MEDS: FOLIC ACID 1 MG TABLET PO SCH (08:08)
[2020-11-01] MEDS: DULoxetine HCL 60 MG CAPSULE PO SCH (08:08)
[2020-11-01] MEDS: MULTIVITAMINS WITH MINERALS, THERAPEUTIC TABLET PO SCH (08:08)
[2020-11-01 08:36] VITALS: BP 156/97
[2020-11-01] MEDS ORDERED: AMOX TR/POT CLAV 500 MG/125 MG TABLET PO SCH (09:00)
[2020-11-01] MEDS: ASCORBIC ACID 500 MG TABLET PO SCH (09:03)
[2020-11-01] MEDS: CYANOCOBALAMIN 500 MCG TABLET PO SCH (09:03)
[2020-11-01] MEDS ORDERED: AMOX-426 PO (11:08)
== END 2020-11-01 13:16 | disposition home or self-care (01) | DRG 750 ==
LOC: EMS 01:11 → B3A 03:00
PROVIDERS: ADMIT Psychiatry & Neurology Psychiatry; ATTEND Psychiatry & Neurology Psychiatry
DX: F25.9 Schizoaffective disorder, unspecified (principal); R45.851 Suicidal ideations; F15.90 Other stimulant use, unspecified, uncomplicated; F17.200 Nicotine dependence, unspecified, uncomplicated; F41.9 Anxiety disorder, unspecified; I10 Essential (primary) hypertension; J45.909 Unspecified asthma, uncomplicated; F10.20 Alcohol dependence, uncomplicated; G47.00 Insomnia, unspecified; K21.9 Gastro-esophageal reflux disease without esophagitis; K59.00 Constipation, unspecified; Z20.822 Contact with and (suspected) exposure to COVID-19
CPT/HCPCS: 80053; 80061; 81001; 83036; 84443; 85025; 87077; 87086; 87186; 99285; G0480

== ENCOUNTER 2021-04-10 12:14 | Emergency (ER) | payer MEDICAID, OTHER ==
[~2021-04-10 12:14] MED LIST changes: +AMOX-426 PO; +LEVE500T20 PO; -LEVE500T53 PO
[2021-04-10 12:30] VITALS: BP 136/77
[2021-04-10] MEDS ORDERED: KETOROLAC TROMETHAMINE 60 MG/2 ML VIAL IM ONE (13:00)
[2021-04-10] MEDS ORDERED: ACETAMINOPHEN 500 MG TABLET PO ONE (13:30)
[2021-04-10] MEDS ORDERED: HYDROCODONE/ACETAMINOPHEN 5-325 MG TABLET PO ONE (15:00)
== END 2021-04-10 15:24 | disposition home or self-care (01) ==
LOC: EMS 12:21
DX: S22.42XA Multiple fractures of ribs, left side, initial encounter for closed fracture (principal); F10.20 Alcohol dependence, uncomplicated; F31.9 Bipolar disorder, unspecified; F20.9 Schizophrenia, unspecified; J45.909 Unspecified asthma, uncomplicated; F17.210 Nicotine dependence, cigarettes, uncomplicated; F12.90 Cannabis use, unspecified, uncomplicated; Z88.8 Allergy status to other drugs, medicaments and biological substances; Z88.5 Allergy status to narcotic agent; Z79.899 Other long term (current) drug therapy; Y90.9 Presence of alcohol in blood, level not specified; X58.XXXA Exposure to other specified factors, initial encounter; Y93.89 Activity, other specified; Y92.89 Other specified places as the place of occurrence of the external cause; Y99.8 Other external cause status
CPT/HCPCS: 71101; 96372; 99284; J1885